=== PATIENT | male | born 2000 | race African-American/Black ===

== ENCOUNTER 2024-02-03 20:17 | Inpatient (IN) | payer MEDICAID, OTHER ==
[~2024-02-03] VITALS: Ht 180.3 cm; Wt 67.5 kg
[2024-02-03] MEDS: LORazepam 2MG/ML-1ML VIAL IV ONE ×2 (20:30→21:06)
[2024-02-03] MEDS: SODIUM CHLORIDE 0.9% 1,000 ML IV ONE ×2 (20:30→21:11)
[2024-02-03 21:06] LABS: Hematocrit 49.6 % (41.0-53.0); Hemoglobin 17.1 g/dL (13.5-17.5); Mean Corpuscular Hgb Conc. 34.6 g/dL (32.0-36.0); Mean Corpuscular Volume 92.5 fL (80.0-100.0); Platelet Count (auto) 214 10^3/uL (140-450); Red Blood Cells 5.36 10^6/uL (4.5-5.90); Red Cell Distribution Width 13.3 % (11.8-14.3); White Blood Cell 6.1 10^3/uL (4.4-10.8)
[2024-02-03 21:14] LABS: Band Neutrophils % (manual) 0; Basophils % (manual) 0 (0.0-2.0); Blast Cells 0; Metamyelocytes % 0; Myelocytes % 0; Promyelocytes % 0; Reactive Lymphocytes 0
[2024-02-03 21:25] LABS: Alanine Aminotransferase 14 U/L (7-40); Albumin 4.5 g/dL (3.2-4.8); Alkaline Phosphatase 78 U/L (46-116); Anion Gap 8 (5-15); Aspartate Aminotransferase 15 U/L (13-40); Blood Urea Nitrogen 9 mg/dL (9-23); Calcium 9.7 mg/dL (8.7-10.4); Carbon Dioxide 25 mmol/L (20-31); Chloride 106 mmol/L (98-107); Glucose 75 mg/dL (74-106); Magnesium 2.2 mg/dL (1.6-2.6); Potassium 3.9 mmol/L (3.5-5.1); Sodium 139 mmol/L (136-145)
[2024-02-03 21:26] LABS: Bilirubin, Total 0.5 mg/dL (0.2-1.0); Total Protein 8.1 g/dL (5.7-8.2)
[2024-02-03 21:39] LABS: Eosinophils % (manual) 2 (0-7); Lymphocytes % (manual) 54 (10.0-50.0); Monocytes % (manual) 14 (0-12); Platelet Estimate Adequate; RBC Morphology Normal
[2024-02-03 22:18] VITALS: PULSE 55; RESP 12; O2SAT 95
[2024-02-03 22:56] LABS: Urine Bacteria FEW /hpf (None Seen); Urine Blood Negative /uL (Negative); Urine Clarity Clear (Clear); Urine Color Yellow (Yellow); Urine Mucus FEW (None Seen); Urine Protein, UAD TRACE (Negative); Urine Specific Gravity 1.029 (1.001-1.035); Urine Sperm PRESENT /hpf (None Seen); Urine Urobilinogen 6 mg/dL (Negative); Urine WBC <1 /hpf (0 - 3); Urine pH 6.5 (5.0-9.0)
[2024-02-03 23:05] LABS: Amphetamine Screen, Urine Neg (NEGATIVE); Barbiturate Scree,Urine Neg (NEGATIVE); Benzodiazephine Screen, Urine Pos (NEGATIVE); Cannabinoid Screen, Urine Neg (NEGATIVE); Cocaine Screen, Urine Neg (NEGATIVE); Opiate Scree,Urine Neg (NEGATIVE); Phencyclidine Screen, Urine Neg (NEGATIVE)
[2024-02-04] MEDS ORDERED: ONDANSETRON HCL 4 MG/2 ML VIAL IV PRN (00:15)
[2024-02-04] MEDS ORDERED: ACETAMINOPHEN 325 MG TAB PO PRN (00:15)
[2024-02-04] MEDS ORDERED: levETIRAcetam 500 mg/100ml 100 ML IV SCH (04:45)
[2024-02-04] MEDS: LORazepam 2MG/ML-1ML VIAL IV ONE (04:50)
[2024-02-04] MEDS: levETIRAcetam 500 mg/100ml 100 ML IV ONE (04:54)
[2024-02-04 07:31] VITALS: PULSE 55; RESP 16; O2SAT 98
[2024-02-04] MEDS: LORazepam 2MG/ML-1ML VIAL IV PRN (11:53)
[2024-02-04 19:30] VITALS: PULSE 75; RESP 13; O2SAT 96
[2024-02-04 21:49] VITALS: PULSE 88; RESP 16; O2SAT 99
[2024-02-04 21:55] VITALS: BP 114/69; PULSE 92; RESP 22; TEMP 97.6; O2SAT 98
[2024-02-04] MEDS ORDERED: levETIRAcetam 500 MG TAB PO SCH (22:00)
[2024-02-04] MEDS ORDERED: ZONI100C43 PO (22:57)
[2024-02-04] MEDS ORDERED: DIVA1TAB59 PO (22:57)
[2024-02-04] MEDS ORDERED: BRIV1TAB7 PO (22:57)
[2024-02-05 01:00] VITALS: BP 110/68; PULSE 66; RESP 22; TEMP 98.5; O2SAT 100
[2024-02-05 05:00] VITALS: BP 116/60; PULSE 74; RESP 20; TEMP 98.1; O2SAT 98
[2024-02-05 09:00] VITALS: BP 111/68; PULSE 66; RESP 17; TEMP 97.7; O2SAT 100
[2024-02-05 13:00] VITALS: BP 111/74; PULSE 64; RESP 16; TEMP 97.5; O2SAT 98
[2024-02-05 17:00] VITALS: BP 117/78; PULSE 100; RESP 18; TEMP 97.8; O2SAT 100
[2024-02-05] MEDS ORDERED: DIVA-91 PO (18:00)
[2024-02-05] MEDS ORDERED: DIVA1TAB59 PO (18:00)
== END 2024-02-05 20:40 | disposition home or self-care (01) | DRG 53 ==
LOC: ER 20:17 → EDBD 20:17 → OVERFLOW 23:52 → WEST WING 02-04 21:50
PROVIDERS: ADMIT Nurse Practitioner; ATTEND Student in an Organized Health Care Education/Training Program
DX: G40.409 Other generalized epilepsy and epileptic syndromes, not intractable, without status epilepticus (principal); Z79.899 Other long term (current) drug therapy; G40.209 Localization-related (focal) (partial) symptomatic epilepsy and epileptic syndromes with complex partial seizures, not intractable, without status epilepticus
CPT/HCPCS: 36415; 70450; 71045; 80053; 80307; 81001; 82550; 83605; 83735; 84484; 85007; 85027; 93005; 95819; 99291; G0378